=== PATIENT | female | born 1955 | race Caucasian/White ===

== ENCOUNTER → 2019-12-09 | Day surgery (SDC) | payer MEDICARE ==
--- NOTE | 2019-12-09 09:02 | MMO ---
LEFT BREAST STEREOTACTIC BIOPSY DIAGNOSTIC LEFT BREAST MAMMOGRAM SURGICAL SPECIMEN: HISTORY: Left breast calcifications. COMPARISON: Prior mammogram performed at [facility]. FINDINGS: Successful left breast stereotactic biopsy. A total of six 10-gauge core biopsy samples were obtaine d. Calcifications are present. TECHNIQUE: Consent was obtained to perform a left breast stereotactic biopsy. The patient was placed in the pro ne position on the stereotactic biopsy. Calcifications were identified in the CC projection. Howeve r, the stroke margin did not allow for adequate deployment of the needle. Therefore, the patient's b reast was compressed in the lateral medial projection. Calcifications were identified. The skin was prepped and draped in a sterile fashion. 1% Lidocaine, buffered with sodium bicarbonate was used fo r local anesthesia. Needle position was confirmed pre- and post-firing. A stereotactic biopsy was p erformed. A total of 6 samples were obtained. Samples were radiographed. Calcifications are presen t. Clip was deployed. Post deployment images demonstrate the clip to be outside of the needle. POSTPROCEDURE MAMMOGRAM: Surgical clip is noted and is slightly anterior to the biopsy site. SPECIMEN RADIOGRAPH: Calcifications are present. There are no immediate postprocedure complications. IMPRESSION: Successful left breast stereotactic biopsy. Final pathologic diagnosis is pending. POS: OFF
== END ==
LOC: MAMMO 07:01
PROVIDERS: ATTEND Internal Medicine
PROC: 0H9U3ZX Drainage of Left Breast, Percutaneous Approach, Diagnostic (ICD-10-PCS; principal; 2019-12-09)
DX: N60.12 Diffuse cystic mastopathy of left breast (principal); R92.0 Mammographic microcalcification found on diagnostic imaging of breast
CPT/HCPCS: 19081; 76098; 88305